=== PATIENT | female | born 1975 | race Caucasian/White ===

== ENCOUNTER 2017-03-30 20:54 | Emergency (ER) | payer SELFPAY ==
[2017-03-30 20:54] VITALS: BMI 25.0
[2017-03-30 21:12] VITALS: BP 146/97; PULSE 75; RESP 16; TEMP 98.1; O2SAT 100
[2017-03-30] MEDS ORDERED: Sodium Chloride 0.9% 1,000 ML IV STA (21:20)
--- NOTE | 2017-03-30 21:45 | ED PDOC ---
HPI: General Adult Time Seen by Provider: 03/30/17 21:18 Chief Complaint (Nursing): Back Pain History Per: Patient History/Exam Limitations: no limitations Onset/Duration Of Symptoms: Days (x few days) Current Symptoms Are (Timing): Still Present Additional Complaint(s): Olivia is a 41 year old female who presents to the emergency department complaining of headache and right-sided neck pain for few days. Patient states she was diagnosed with Parotitis and was given antibiotics. Patient subsequently seen for 3 infections and was treated. Reports blurry visison, but denies nausea or photophobia. PMD: Effie Chen Past Medical History Reviewed: Historical Data, Nursing Documentation, Vital Signs Vital Signs: Last Vital Signs Temp 98.1 F 03/30/17 21:05 Pulse 75 03/30/17 21:05 Resp 16 03/30/17 21:05 BP 146/97 H 03/30/17 21:05 Pulse Ox 100 03/30/17 23:23 - Medical History PMH: No Chronic Diseases Denies: Chronic Kidney Disease - Surgical History Surgical History: Cholecystectomy - Family History Family History: States: Unknown Family Hx - Home Medications Home Medications: Ambulatory Orders Medication Instructions Recorded Acetaminophen/Hydrocodone Bi 1 tab PO QID PRN #10 tab 05/04/14 [Vicodin 300 mg-5 mg] DiphenhydrAMINE [Benadryl] 50 mg PO Q6 PRN #30 cap 12/06/15 Naproxen 1 tab PO Q12 PRN #10 tab 03/30/17 - Allergies Allergies/Adverse Reactions: Allergies Allergy/AdvReac Type Severity Reaction Status Date / Time No Known Allergies Allergy Verified 06/17/14 09:55 Review of Systems ROS Statement: Except As Marked, All Systems Reviewed And Found Negative Eyes: Positive for: Vision Change (blurry vision). Negative for: Other ( Photophobia) Gastrointestinal: Negative for: Nausea Musculoskeletal: Positive for: Neck Pain (right-sided) Neurological: Positive for: Headache Physical Exam - Reviewed Nursing Documentation Reviewed: Yes Vital Signs Reviewed: Yes - Physical Exam Appears: Positive for: Non-toxic Head Exam: Positive for: ATRAUMATIC, NORMAL INSPECTION, NORMOCEPHALIC Skin: Positive for: Normal Color, Warm, Dry Eye Exam: Positive for: Normal appearance ENT: Positive for: Normal ENT Inspection Neck: Negative for: Normal ((+): Right lateral neck pain) Cardiovascular/Chest: Positive for: Regular Rate, Rhythm Respiratory: Positive for: Normal Breath Sounds. Negative for: Other Gastrointestinal/Abdominal: Positive for: Normal Exam Back: Positive for: Normal Inspection Extremity: Positive for: Normal ROM. Negative for: Deformity Neurologic/Psych: Positive for: Alert, respiratory clinician II-XII, Oriented. Negative for: Motor/Sensory Deficits - Laboratory Results Result Diagrams: 03/30/17 22:00 03/30/17 22:00 Urine POC: Negative - ECG O2 Sat by Pulse Oximetry: 100 (RA) Pulse Ox Interpretation: Normal - Progress ED Course And Treament: HEAD CT: FINDINGS: Brain: No acute intracranial hemorrhage. No abnormal extra-axial fluid collection. No herniation. Patent basal cisterns. Preserved morgan-white matter differentiation. No evidence of acute ischemia. No evident intracranial mass. Ventricles: No ventriculomegaly. Bones/joints: No destructive calvarial lesion. Soft tissues: No acute findings. Sinuses: The imaged paranasal sinuses are clear. Mastoid air cells: The mastoid air cells are clear. Orbits: No evident acute abnormality of the intraorbital contents. IMPRESSION: No acute findings. Thank you for allowing us to participate in the care of your patient NS 1 liter wide open reglan 10 mg iv x 1 dose notes persistent symptoms toradol 15 mg iv x dose kdur 40 meq x 1 dose PATIENT NOTES IMPROVEMENT OF SYMPTOMS UPON RE-EXAMINATION AT 23:46PM Medical Decision Making Medical Decision Making: Time: 21:20 Plan: - CT Head without Contrast - BMP - ED Urine - CBC - Sodium Chloride 0.9% 1,000 ml IV 1,000 mls/hr - Reglan 10 mg IVP Scribe Attestation: Documented by Davin Angel, acting as a scribe for Angela Newell PA-C. Provider Scribe Attestation: All medical record entries made by the Scribe were at my direction and personally dictated by me. I have reviewed the chart and agree that the record accurately reflects my personal performance of the history, physical exam, medical decision making, and the department course for this patient. I have also personally directed, reviewed, and agree with the discharge instructions and disposition. Disposition - Clinical Impression Clinical Impression: Headache - Patient ED Disposition Is Patient to be Admitted: No - Disposition Disposition: Routine/Home Disposition Time: 23:46 Condition: FAIR Prescriptions: Naproxen 1 tab PO Q12 PRN #10 tab PRN Reason: Pain, Moderate (4-7) Instructions: Migraine Headache (ED) Forms: [facility] (Pakistani), [employer] ED School/Work Excuse Print Language: HUNGARIAN
[2017-03-30 22:14] LABS: BASO # 0.1 K/uL (0.0-0.2); EOS # 0.5 K/uL (0.0-0.7); EOS % 4.8 % (0.0-4.0); HEMOGLOBIN 12.7 g/dL (12.0-16.0); LYMPH # 3.9 K/uL (1.0-4.3); MEAN CELL VOLUME 91.9 fl (81.0-99.0); MEAN CORPUSCULAR HEMOGLOBIN 31.1 pg (27.0-31.0); MEAN CORPUSCULAR HGB CONC 33.8 g/dL (33.0-37.0); MEAN PLATELET VOLUME 7.4 fl (7.2-11.7); MONO # 0.8 K/uL (0.0-0.8); NEUT # 4.7 K/uL (1.8-7.0); NEUT % 47.2 % (50.0-75.0); RBC 4.07 Mil/uL (3.80-5.20); RED CELL DISTRIBUTION WIDTH 12.6 % (11.5-14.5); WHITE BLOOD COUNT 9.9 K/uL (4.8-10.8)
[2017-03-30 22:24] LABS: BLOOD UREA NITROGEN 12 mg/dl (7-17); CALCIUM 9.4 mg/dL (8.4-10.2); GFR AFRICAN-AMERICAN > 60; GFR NON-AFRICAN AMERICAN > 60
[2017-03-30] MEDS ORDERED: Potassium Chloride 20 mEq ER Tab PO STA (22:27)
[2017-03-30] MEDS ORDERED: Potassium Chloride 20 mEq ER Tab PO ONE (23:28)
--- NOTE | 2017-03-31 09:37 | CT ---
PROCEDURE: CT HEAD WITHOUT CONTRAST. HISTORY: HEADACHE COMPARISON: None available. TECHNIQUE: Axial computed tomography images were obtained through the head/brain without intravenous contrast. Radiation dose: Total exam DLP = 870.8 mGy-cm. This CT exam was performed using one or more of the following dose reduction techniques: Automated exposure control, adjustment of the mA and/or kV according to patient size, and/or use of iterative reconstruction technique. FINDINGS: HEMORRHAGE: No intracranial hemorrhage. BRAIN: No mass effect or edema. No atrophy or chronic microvascular ischemic changes. VENTRICLES: Unremarkable. No hydrocephalus. CALVARIUM: Unremarkable. PARANASAL SINUSES: Unremarkable as visualized. No significant inflammatory changes. MASTOID AIR CELLS: Unremarkable as visualized. No inflammatory changes. OTHER FINDINGS: None. IMPRESSION: No acute intracranial pathology.
== END 2017-03-30 23:56 | disposition home or self-care (01) ==
LOC: H.ER 20:54
DX: R51 Headache (principal)
CPT/HCPCS: 70450; 80048; 81025; 85025; 96361; 96374; 96375; 99282; J1885; J2765; J7040